=== PATIENT | female | born 2000 | race Two or more races ===

== ENCOUNTER 2023-09-17 08:46 | Emergency (ER) | payer OTHER ==
[~2023-09-17] VITALS: Ht 157.5 cm; Wt 44.5 kg
[2023-09-17 09:04] VITALS: BP 121/61; TEMP 98.2; O2SAT 97
== END 2023-09-17 09:12 ==
LOC: ER 09:02
DX: T76.21XA Adult sexual abuse, suspected, initial encounter (principal); F14.10 Cocaine abuse, uncomplicated; F12.10 Cannabis abuse, uncomplicated; F17.200 Nicotine dependence, unspecified, uncomplicated; F10.10 Alcohol abuse, uncomplicated